=== PATIENT | female | born 1960 | race Caucasian/White ===

== ENCOUNTER 2017-08-22 10:42 | Emergency (ER) | payer BC, MEDICARE ==
--- NOTE | 2017-08-22 11:45 | RAD ---
INDICATION: Headaches COMPARISON: None TECHNIQUE: Noncontrast axial source images were acquired from the skull base to the vertex. FINDINGS: Ventricles/sulci: The ventricles and cisterns are normal in size and configuration for age. Brain parenchyma: There is no focal parenchymal finding, evidence of intracranial mass, or intracranial mass effect. Intracranial hemorrhage:None. Extra-axial spaces: There are no abnormal extra axial fluid collections or evidence of extra-axial mass. Calvarium: There is no calvarial fracture or other calvarial abnormality. Scalp: There is no evidence of scalp or extracalvarial soft tissue abnormality. Paranasal sinuses/mastoid: The paranasal sinuses and mastoid air cells are clear. Other: None. IMPRESSION: NEGATIVE EXAMINATION
[2017-08-22] MEDS ORDERED: Ondansetron INJ* 2 MG/ML VIAL IV ONE ×2 (12:37→14:57)
[2017-08-22] MEDS ORDERED: Morphine INJ* 4 MG/ML 1 ML CARPUJECT IV ONE ×2 (12:37→13:55)
[2017-08-22] MEDS ORDERED: NS 0.9% 1000 ML* 1,000 ML IV ONE (12:37)
[2017-08-22 13:08] LABS: Hematocrit 44 % (35-47); Hemoglobin 15.1 g/dl (12.0-16.0); Mean Corpuscular HGB Conc 35 g/dl (31-36); Mean Corpuscular Hemoglobin 30 pg (27-31); Mean Corpuscular Volume 87 fL (80-97); Mean Platelet Volume 8 um3 (7.4-10.4); Red Blood Count 5.01 10^6/ul (4.0-5.4); Red Cell Distribution Width 13 % (10.5-15); White Blood Count 8.2 10^3/ul (3.5-10.8)
[2017-08-22] MEDS ORDERED: Lidocaine 1% INJ* 10 MG/ML 30 ML SDV ONE (13:10)
[2017-08-22 13:23] LABS: Urine Bilirubin Negative (Negative); Urine Glucose Negative (Negative); Urine Nitrite Negative (Negative)
[2017-08-22 13:30] LABS: Albumin 4.1 g/dL (3.2-5.2); BUN/Creatinine Ratio 20.2 (8-20); Calcium 9.4 mg/dL (8.6-10.3); EGFR African American 89.6 (>60); EGFR Non-African American 69.6 (>60); Globulin 2.5 g/dL (2-4); Potassium 3.6 mmol/L (3.5-5.0); Total Bilirubin 0.5 mg/dL (0.2-1.0); Total Protein 6.6 g/dL (6.4-8.9)
[2017-08-22 13:34] LABS: Benzodiazepine Urine Screen None Detected (None Detect)
[2017-08-22 13:51] LABS: Erythrocyte Sed Rate 12 mm/Hr (0-30)
[2017-08-22 14:22] LABS: Body Fluid Appearance Clear
[2017-08-22 14:23] LABS: BF RBC Count #1 0; BF RBC Count #2 0; BF WBC Count #1 2; BF WBC Count #2 2; Body Fluid WBC 2 /mcL; RBC counts within 6%? Yes; WBC counts within 15%? Yes
[2017-08-22 14:31] LABS: CSF Glucose 61 mg/dL (40-70)
[2017-08-22 14:42] LABS: Body Fluid Total Cells Counted 32
[2017-08-22] MEDS ORDERED: Ketorolac INJ* 30 MG/ML 1 ML VIAL IV PUSH ONE (14:52)
--- NOTE | 2017-08-22 14:53 | RAD ---
INDICATION: Cough and congestion x6 weeks COMPARISON: None TECHNIQUE: PA and lateral views of the chest were obtained. FINDINGS: The heart and mediastinum are normal in size and contour. The lungs are grossly clear. There is no evidence of large pleural effusion. Visualized bones are normal for the patient's age. An intrathecal neurostimulator is incidentally noted in position at the lower to mid level thoracic spine. There is no radiographic evidence of free air beneath the diaphragm IMPRESSION: No radiographic evidence of acute cardiopulmonary disease.
[2017-08-22] MEDS ORDERED: diPHENhydraMINE IV* 50 MG/ML 1 ml VIAL (BENADRYL) IV ONE (14:56)
[2017-08-22 16:14] VITALS: BP 133/76
--- NOTE | 2017-08-23 02:19 | ED ---
Laury Dorantes Edward, scribed for Crissy Fowler MD on 08/22/17 at 1211 . Headache - HPI Summary HPI Summary: 56 y/o female presents to the ED from [facility] c/o sudden onset DOHERTY after given a duoneb at [facility] earlier today. The DOHERTY is a dull DOHERTY located on the frontal region of the R side of the head, radiating to the back of the head , to the R eye and R cheek. It was rated a 10/10 rated the worst DOHERTY of her life initially. The pain is at a 6/10 currently. The pain is aggravated with bright lights. Associated sx: cough, chills, sinus congestion for 6 weeks, R eye wandering that predates the DOHERTY, chronic back and joint pain, chronic R side neck pain. BP 186/94 on admission. Pt has been taking Nyquil, Dayquil and Zyrtec for her congestion, which has not alleviated her cold-like symptoms. PMHx HTN, migraines, tunnel vision, GERD, arthritis. Sx hip replacement, R eye surgery 1 year ago. Past medications reviewed on visit - metropolol, topiramatc , dexilant, eszopiclone, Vit B12, C, D3, Align. FHx adopted. Pt's states the pt's family has been under lots of stress recently. - History Of Current Complaint Chief Complaint: EDHeadache Stated Complaint: SOB/HEADACHE Time Seen by Provider: 08/22/17 11:38 Hx Obtained From: Patient Onset/Duration: Sudden Onset, Started hours ago, Still Present Initially Headache Was: "Worst Headache Ever" Currently Pain Is: Moderate - 6/10 Character: Dull Location of Headache: Frontal - R side Radiates to: Back of head, R eye and R cheek Aggravating Factor: Bright Lights Allevating Factors: Nothing Associated Signs And Symptoms: Other (Noted In Comments) - sinus congestion (6 weeks), chills - Allergies/Home Medications Allergies/Adverse Reactions: Allergies Allergy/AdvReac Type Severity Reaction Status Date / Time CI Pigment Blue 63 Allergy Rash Verified 12/23/15 11:36 [From Cymbalta] Codeine Allergy Nausea Verified 12/23/15 11:36 Duloxetine [From Cymbalta] Allergy Rash Verified 12/23/15 11:36 PMH/Surg Hx/FS Hx/Imm Hx Previously Healthy: No Endocrine/Hematology History: Reports: Hx Anemia - hx of years ago Denies: Hx Diabetes Cardiovascular History: Reports: Hx Hypertension - ON MEDS GI History: Reports: Hx Gastroesophageal Reflux Disease - ON MEDS, Hx Ulcer - HX OF History: Denies: Hx Renal Disease Musculoskeletal History: Reports: Hx Arthritis, Hx Bursitis - BILAT KNEES AND HIPS Sensory History: Reports: Hx Contacts or Glasses - READING Denies: Hx Hearing Aid Opthamlomology History: Reports: Hx Contacts or Glasses - READING Neurological History: Reports: Hx Migraine, Other Neuro Impairments/Disorders - NEURO STIMULATOR TO BACK Psychiatric History: Reports: Hx Anxiety, Hx Depression - Cancer History Hx Chemotherapy: No Hx Radiation Therapy: No - Surgical History Surgery Procedure, Year, and Place: tubal ligation. corrective eye surgery x2 [facility]. breast cystectomy. neurostimulator implant in back 2011 [facility]. varicose veins R leg surgery. left thr 2012 [facility]. [facility] arthroplasty left thumb 2014 [facility] [place] Hx Anesthesia Reactions: No Infectious Disease History: No Infectious Disease History: Denies: Traveled Outside the [place] in Last 30 Days - Family History Known Family History: Positive: Other - Negative for breast cancer - Social History Alcohol Use: Occasionally Hx Substance Use: No Substance Use Type: Reports: None Hx Tobacco Use: No Smoking Status (MU): Never Smoked Tobacco Review of Systems Positive: Chills Eyes: Other - R eye wandering ENT: Other - sinus congestion Cardiovascular: Negative Positive: Cough Gastrointestinal: Negative Genitourinary: Negative Positive: Arthralgia - back, joint and neck pain (chronic) Skin: Negative Positive: Headache Psychological: Normal All Other Systems Reviewed And Are Negative: Yes Physical Exam - Summary Physical Exam Summary: Appearance: Tearful with pain, holds R side of his face. Well-nourished Skin: Warm, color reflects adequate perfusion Head: Normal Head/Face Eyes: Conjunctiva clear. Pupils 2 mm equally round and reactive. R eye deviated more to the R but EOM intact. Fundi discs sharp and flat, no hemorrhage. ENT: Normal Neck: Supple, no lymphadenopathy. Chin to neck intact. Respiratory: Lungs clear, Normal breath sounds, no respiratory distress Cardio: RRR, No murmur, pulses normal, brisk capillary refill Abdomen: soft, nontender Bowel sounds: present Musculoskeletal: Strength Intact/ ROM intact Neuro: Alert, muscle tone normal, facial symmetry, speech normal, sensory/motor intact Psychological: Normal Triage Information Reviewed: Yes Vital Signs On Initial Exam: Initial Vitals Temp Pulse Resp BP Pulse Ox 100 F 95 28 162/98 98 08/22/17 10:47 08/22/17 10:47 08/22/17 10:47 08/22/17 10:47 08/22/17 10:47 Vital Signs Reviewed: Yes - Abran Coma Scale Coma Scale Total: 15 Diagnostics - Vital Signs Vital Signs Temp Pulse Resp BP Pulse Ox 08/22/17 11:00 88 15 98 08/22/17 10:52 97 19 98 08/22/17 10:47 100 F 95 28 162/98 98 - Laboratory Lab Results: Lab Results 08/22/17 08/22/17 08/22/17 Range/Units 12:55 12:55 12:55 WBC 8.2 (3.5-10.8) 10^3/ul RBC 5.01 (4.0-5.4) 10^6/ul Hgb 15.1 (12.0-16.0) g/dl Hct 44 (35-47) % MCV 87 (80-97) fL MCH 30 (27-31) pg MCHC 35 (31-36) g/dl RDW 13 (10.5-15) % Plt Count 229 (150-450) 10^3/ul MPV 8 (7.4-10.4) um3 Neut % (Auto) 77.0 (38-83) % Lymph % (Auto) 17.4 L (25-47) % Bowie % (Auto) 4.8 (1-9) % Eos % (Auto) 0.4 (0-6) % Baso % (Auto) 0.4 (0-2) % Absolute Neuts (auto) 6.3 (1.5-7.7) 10^3/ul Absolute Lymphs (auto) 1.4 (1.0-4.8) 10^3/ul Absolute Monos (auto) 0.4 (0-0.8) 10^3/ul Absolute Eos (auto) 0 (0-0.6) 10^3/ul Absolute Basos (auto) 0 (0-0.2) 10^3/ul Absolute Nucleated RBC 0.01 10^3/ul Nucleated RBC % 0.1 ESR 12 (0-30) mm/Hr INR (Anticoag Therapy) 0.83 L (0.89-1.11) APTT 29.6 (26.0-36.3) seconds Sodium 139 (133-145) mmol/L Potassium 3.6 (3.5-5.0) mmol/L Chloride 109 (101-111) mmol/L Carbon Dioxide 23 (22-32) mmol/L Anion Gap 7 (2-11) mmol/L BUN 17 (6-24) mg/dL Creatinine 0.84 (0.51-0.95) mg/dL Est GFR ( Amer) 89.6 (>60) Est GFR (Non-Af Amer) 69.6 (>60) BUN/Creatinine Ratio 20.2 H (8-20) Glucose 117 H (70-100) mg/dL Lactic Acid (0.5-2.0) mmol/L Calcium 9.4 (8.6-10.3) mg/dL Total Bilirubin 0.50 (0.2-1.0) mg/dL AST 31 (13-39) U/L ALT 44 (7-52) U/L Alkaline Phosphatase 50 (34-104) U/L C-Reactive Protein (< 5.00) mg/L Total Protein 6.6 (6.4-8.9) g/dL Albumin 4.1 (3.2-5.2) g/dL Globulin 2.5 (2-4) g/dL Albumin/Globulin Ratio 1.6 (1-3) Urine Color Urine Appearance Urine pH (5-9) Ur Specific [place] (1.010-1.030) Urine Protein (Negative) Urine Ketones (Negative) Urine Blood (Negative) Urine Nitrate (Negative) Urine Bilirubin (Negative) Urine Urobilinogen (Negative) Ur Leukocyte Esterase (Negative) Urine Glucose (Negative) Fluid Source Fluid Volume mL Fluid Color Fluid Appearance Fluid WBC /mcL Fluid RBC /mcL Fluid Tot Cell Count Fluid Neutrophils Fluid Lymphocytes % Fluid Monocytes % Fluid Cell Count Rvw By CSF Cell Count Tube # CSF Glucose (40-70) mg/dL CSF Total Protein (15-45) mg/dL Urine Opiates Screen (None Detect) Ur Barbiturates Screen (None Detect) Ur Phencyclidine Scrn (None Detect) Ur Amphetamines Screen (None Detect) U Benzodiazepines Scrn (None Detect) Urine Cocaine Screen (None Detect) U Cannabinoids Screen (None Detect) Influenza A (Rapid) (Negative) Influenza B (Rapid) (Negative) 08/22/17 08/22/17 08/22/17 Range/Units 12:55 13:03 13:03 WBC (3.5-10.8) 10^3/ul RBC (4.0-5.4) 10^6/ul Hgb (12.0-16.0) g/dl Hct (35-47) % MCV (80-97) fL MCH (27-31) pg MCHC (31-36) g/dl RDW (10.5-15) % Plt Count (150-450) 10^3/ul MPV (7.4-10.4) um3 Neut % (Auto) (38-83) % Lymph % (Auto) (25-47) % Bowie % (Auto) (1-9) % Eos % (Auto) (0-6) % Baso % (Auto) (0-2) % Absolute Neuts (auto) (1.5-7.7) 10^3/ul Absolute Lymphs (auto) (1.0-4.8) 10^3/ul Absolute Monos (auto) (0-0.8) 10^3/ul Absolute Eos (auto) (0-0.6) 10^3/ul Absolute Basos (auto) (0-0.2) 10^3/ul Absolute Nucleated RBC 10^3/ul Nucleated RBC % ESR (0-30) mm/Hr INR (Anticoag Therapy) (0.89-1.11) APTT (26.0-36.3) seconds Sodium (133-145) mmol/L Potassium (3.5-5.0) mmol/L Chloride (101-111) mmol/L Carbon Dioxide (22-32) mmol/L Anion Gap (2-11) mmol/L BUN (6-24) mg/dL Creatinine (0.51-0.95) mg/dL Est GFR ( Amer) (>60) Est GFR (Non-Af Amer) (>60) BUN/Creatinine Ratio (8-20) Glucose (70-100) mg/dL Lactic Acid 1.8 (0.5-2.0) mmol/L Calcium (8.6-10.3) mg/dL Total Bilirubin (0.2-1.0) mg/dL AST (13-39) U/L ALT (7-52) U/L Alkaline Phosphatase (34-104) U/L C-Reactive Protein (< 5.00) mg/L Total Protein (6.4-8.9) g/dL Albumin (3.2-5.2) g/dL Globulin (2-4) g/dL Albumin/Globulin Ratio (1-3) Urine Color Straw Urine Appearance Clear Urine pH 8.0 (5-9) Ur Specific [place] 1.008 L (1.010-1.030) Urine Protein Negative (Negative) Urine Ketones Negative (Negative) Urine Blood Negative (Negative) Urine Nitrate Negative (Negative) Urine Bilirubin Negative (Negative) Urine Urobilinogen Negative (Negative) Ur Leukocyte Esterase Negative (Negative) Urine Glucose Negative (Negative) Fluid Source Fluid Volume mL Fluid Color Fluid Appearance Fluid WBC /mcL Fluid RBC /mcL Fluid Tot Cell Count Fluid Neutrophils Fluid Lymphocytes % Fluid Monocytes % Fluid Cell Count Rvw By CSF Cell Count Tube # CSF Glucose (40-70) mg/dL CSF Total Protein (15-45) mg/dL Urine Opiates Screen None detected (None Detect) Ur Barbiturates Screen None detected (None Detect) Ur Phencyclidine Scrn None detected (None Detect) Ur Amphetamines Screen None detected (None Detect) U Benzodiazepines Scrn None detected (None Detect) Urine Cocaine Screen None detected (None Detect) U Cannabinoids Screen None detected (None Detect) Influenza A (Rapid) (Negative) Influenza B (Rapid) (Negative) 08/22/17 08/22/17 08/22/17 Range/Units 13:30 13:30 13:53 WBC (3.5-10.8) 10^3/ul RBC (4.0-5.4) 10^6/ul Hgb (12.0-16.0) g/dl Hct (35-47) % MCV (80-97) fL MCH (27-31) pg MCHC (31-36) g/dl RDW (10.5-15) % Plt Count (150-450) 10^3/ul MPV (7.4-10.4) um3 Neut % (Auto) (38-83) % Lymph % (Auto) (25-47) % Bowie % (Auto) (1-9) % Eos % (Auto) (0-6) % Baso % (Auto) (0-2) % Absolute Neuts (auto) (1.5-7.7) 10^3/ul Absolute Lymphs (auto) (1.0-4.8) 10^3/ul Absolute Monos (auto) (0-0.8) 10^3/ul Absolute Eos (auto) (0-0.6) 10^3/ul Absolute Basos (auto) (0-0.2) 10^3/ul Absolute Nucleated RBC 10^3/ul Nucleated RBC % ESR (0-30) mm/Hr INR (Anticoag Therapy) (0.89-1.11) APTT (26.0-36.3) seconds Sodium (133-145) mmol/L Potassium (3.5-5.0) mmol/L Chloride (101-111) mmol/L Carbon Dioxide (22-32) mmol/L Anion Gap (2-11) mmol/L BUN (6-24) mg/dL Creatinine (0.51-0.95) mg/dL Est GFR ( Amer) (>60) Est GFR (Non-Af Amer) (>60) BUN/Creatinine Ratio (8-20) Glucose (70-100) mg/dL Lactic Acid (0.5-2.0) mmol/L Calcium (8.6-10.3) mg/dL Total Bilirubin (0.2-1.0) mg/dL AST (13-39) U/L ALT (7-52) U/L Alkaline Phosphatase (34-104) U/L C-Reactive Protein 3.44 (< 5.00) mg/L Total Protein (6.4-8.9) g/dL Albumin (3.2-5.2) g/dL Globulin (2-4) g/dL Albumin/Globulin Ratio (1-3) Urine Color Urine Appearance Urine pH (5-9) Ur Specific [place] (1.010-1.030) Urine Protein (Negative) Urine Ketones (Negative) Urine Blood (Negative) Urine Nitrate (Negative) Urine Bilirubin (Negative) Urine Urobilinogen (Negative) Ur Leukocyte Esterase (Negative) Urine Glucose (Negative) Fluid Source Cerebral spinal Fluid Volume 5 mL Fluid Color Colorless Fluid Appearance Clear Fluid WBC 2 /mcL Fluid RBC 0 /mcL Fluid Tot Cell Count 32 Fluid Neutrophils Not Reportable Fluid Lymphocytes 25 % Fluid Monocytes 75 % Fluid Cell Count Rvw By Pending CSF Cell Count Tube # 4 CSF Glucose 61 (40-70) mg/dL CSF Total Protein 44 (15-45) mg/dL Urine Opiates Screen (None Detect) Ur Barbiturates Screen (None Detect) Ur Phencyclidine Scrn (None Detect) Ur Amphetamines Screen (None Detect) U Benzodiazepines Scrn (None Detect) Urine Cocaine Screen (None Detect) U Cannabinoids Screen (None Detect) Influenza A (Rapid) (Negative) Influenza B (Rapid) (Negative) 08/22/17 Range/Units 14:22 WBC (3.5-10.8) 10^3/ul RBC (4.0-5.4) 10^6/ul Hgb (12.0-16.0) g/dl Hct (35-47) % MCV (80-97) fL MCH (27-31) pg MCHC (31-36) g/dl RDW (10.5-15) % Plt Count (150-450) 10^3/ul MPV (7.4-10.4) um3 Neut % (Auto) (38-83) % Lymph % (Auto) (25-47) % Bowie % (Auto) (1-9) % Eos % (Auto) (0-6) % Baso % (Auto) (0-2) % Absolute Neuts (auto) (1.5-7.7) 10^3/ul Absolute Lymphs (auto) (1.0-4.8) 10^3/ul Absolute Monos (auto) (0-0.8) 10^3/ul Absolute Eos (auto) (0-0.6) 10^3/ul Absolute Basos (auto) (0-0.2) 10^3/ul Absolute Nucleated RBC 10^3/ul Nucleated RBC % ESR (0-30) mm/Hr INR (Anticoag Therapy) (0.89-1.11) APTT (26.0-36.3) seconds Sodium (133-145) mmol/L Potassium (3.5-5.0) mmol/L Chloride (101-111) mmol/L Carbon Dioxide (22-32) mmol/L Anion Gap (2-11) mmol/L BUN (6-24) mg/dL Creatinine (0.51-0.95) mg/dL Est GFR ( Amer) (>60) Est GFR (Non-Af Amer) (>60) BUN/Creatinine Ratio (8-20) Glucose (70-100) mg/dL Lactic Acid (0.5-2.0) mmol/L Calcium (8.6-10.3) mg/dL Total Bilirubin (0.2-1.0) mg/dL AST (13-39) U/L ALT (7-52) U/L Alkaline Phosphatase (34-104) U/L C-Reactive Protein (< 5.00) mg/L Total Protein (6.4-8.9) g/dL Albumin (3.2-5.2) g/dL Globulin (2-4) g/dL Albumin/Globulin Ratio (1-3) Urine Color Urine Appearance Urine pH (5-9) Ur Specific [place] (1.010-1.030) Urine Protein (Negative) Urine Ketones (Negative) Urine Blood (Negative) Urine Nitrate (Negative) Urine Bilirubin (Negative) Urine Urobilinogen (Negative) Ur Leukocyte Esterase (Negative) Urine Glucose (Negative) Fluid Source Fluid Volume mL Fluid Color Fluid Appearance Fluid WBC /mcL Fluid RBC /mcL Fluid Tot Cell Count Fluid Neutrophils Fluid Lymphocytes % Fluid Monocytes % Fluid Cell Count Rvw By CSF Cell Count Tube # CSF Glucose (40-70) mg/dL CSF Total Protein (15-45) mg/dL Urine Opiates Screen (None Detect) Ur Barbiturates Screen (None Detect) Ur Phencyclidine Scrn (None Detect) Ur Amphetamines Screen (None Detect) U Benzodiazepines Scrn (None Detect) Urine Cocaine Screen (None Detect) U Cannabinoids Screen (None Detect) Influenza A (Rapid) Negative (Negative) Influenza B (Rapid) Negative (Negative) Result Diagrams: 08/22/17 12:55 08/22/17 12:55 Lab Statement: Any lab studies that have been ordered have been reviewed, and results considered in the medical decision making process. - Radiology CXR Xray Interpretation: No Acute Changes - No radiographic evidence of acute cardiopulmonary disease. Radiology Interpretation Completed By: Radiologist - CT BRAIN CT CT Interpretation: No Acute Changes - NEGATIVE EXAMINATION CT Interpretation Completed By: Radiologist Re-Evaluation - Re-Evaluation 1 Re-Evaluation Time: 13:50 Change: Improved Comment: Obtained spinal tap. DOHERTY still at a 6 2 Re-Evaluation Time: 14:52 Change: Improved Comment: Discuss plan of care. Advised of CSF results. Pt will be d/c with migraine treatment. Pt is agreeable. Pt asks what else we should do for her sinus congestion. Pt's DOHERTY is at a 3/10. 3 Re-Evaluation Time: 15:05 Comment: Notify pt about rest of results Headache Course/Dx - Course Assessment/Plan: 56 y/o female presents to the ED from [facility] c/ o sudden onset DOHERTY after given a duoneb at [facility] earlier today. The DOHERTY is a dull DOHERTY located on the frontal region of the R side of the head, radiating to the back of the head, to the R eye and R cheek. It was rated a 10/10 rated the worst DOHERTY of her life initially. The pain is at a 6/10 currently. The pain is aggravated with bright lights. Associated sx: cough, chills, sinus congestion for 6 weeks, R eye wandering, chronic back and joint pain, chronic R side neck pain. BP 186/94. Pt has been taking Nyquil, Dayquil and Zyrtec for her congestion, which has not alleviated her cold-like symptoms. PMHx HTN, migraines , tunnel vision, GERD, arthritis. Sx hip replacement, R eye surgery. Past medications reviewed on visit - metropolol, topiramatc, dexilant, eszopiclone, Vit B12, C, D3, Align. FHx adopted. Pt's states the pt's family has been under lots of stress recently. BRAIN CT SHOWS NEGATIVE EXAMINATION. Spoke with Dr. Pretty who recommends immediate spinal tap. Spinal tap performed by Dr. Olson (anesthesiologist). Spoke with Dr. Simpson (eye doctor), who believes the R eye wander is not related to the DOHERTY but related to continued R eye muscle weakness. Adding CXR and Flu A and B swabs to evaluate sinus congestion for past 6 weeks. CXR SHOWS No radiographic evidence of acute cardiopulmonary disease. Flu A and B negative. Discussed with Dr. Bonno at 14:26 who recommend we treat her with Toradol, Benadryl and an anti-emetic. - Diagnoses Provider Diagnoses: Headache, Migraine - Physician Notifications Discussed Care Of Patient With: Evelina Pretty Time Discussed With Above Provider: 12:35 Instructed by Provider To: Other - Immediately perform spinal tap Discharge - Discharge Plan Condition: Stable Disposition: HOME Prescriptions: Amoxicillin/Clavulanate TAB* [Augmentin TAB 875*] 875 mg PO BID #20 tab Fluticasone NASAL SPRAY 50MCG* [Flonase NASAL SPRAY 50MCG*] 2 spray BOTH NARES DAILY #1 btl Patient Education Materials: Sinusitis (ED), Migraine Headache (ED), Lumbar Puncture (ED) Referrals: Ludivina Issa MD [Primary Care Provider] - 2 Days (PLEASE F/U IN 2 DAYS) Additional Instructions: YOU HAD A SPINAL TAP PERFORMED TODAY. THE RESULTS DID NOT SHOW A SUBARACHNOID BLEED OR MENINGITIS. SOME RESULTS ARE STILL PENDING. WE WILL NOTIFY YOU WITH THESE RESULTS. YOU WERE GIVEN MORPHINE, TORADOL, BENADRYL, ZOFRAN, AND 1 LITER OF FLUID TODAY IN THE ED BOTH YOUR BRAIN CT AND CHEST XRAY WERE NEGATIVE. YOUR FLU SWAB WAS ALSO NEGATIVE. WE WILL TREAT YOUR SINUSITIS WITH AUGMENTIN. RETURN TO THE ER FOR RETURN OR WORSENING SYMPTOMS. The documentation as recorded by the Laury salvador Edward accurately reflects the service I personally performed and the decisions made by , Crissy Fowler MD.
== END 2017-08-22 16:13 | disposition home or self-care (01) ==
LOC: ED 10:42
DX: R51 Headache (principal)
CPT/HCPCS: 36415; 70450; 71020; 80053; 80307; 81003; 82945; 83605; 84157; 85025; 85610; 85652; 85730; 86140; 86592; 87040; 87070; 87205; 87502; 89051; 99283; J1200; J1885; J2001; J2270; J2405

== ENCOUNTER 2024-07-02 05:39 | Observation (INO) ==
[~2024-07-02 05:39] MED LIST: Metoclopramide 5 MG/ML VIAL (10 mg) IV PRN; Naloxone 0.4 mg VIAL 0.4 mg/ml 1 ml VIAL IV PRN; Ondansetron 4 mg VIAL 2 MG/ML 2 ml VIAL IV PRN; fentaNYL 100 mcg/2 ml 50 MCG/ML VIAL IV PRN
[2024-07-02] MEDS ORDERED: Midazolam 2 mg/2 ml VIAL 1 mg/ml 2 ml VIAL (2 mg) ONE (06:34)
[2024-07-02] MEDS ORDERED: Lidocaine 2% PF 5 ML VIAL ONE (06:34)
[2024-07-02] MEDS ORDERED: Dexamethasone IV 4 MG/ML VIAL 1 ml VIAL ONE (06:34)
[2024-07-02] MEDS ORDERED: Propofol 10 MG/ML 20 ML BTL ONE (06:34)
[2024-07-02] MEDS ORDERED: fentaNYL 100 mcg/2 ml 50 MCG/ML VIAL ONE (06:34)
[2024-07-02] MEDS ORDERED: Rocuronium 50 mg VIAL 10 mg/ml 5 ml VIAL (50 mg) ONE (06:34)
[2024-07-02] MEDS ORDERED: Ondansetron 4 mg VIAL 2 MG/ML 2 ml VIAL ONE (06:34)
[2024-07-02] MEDS ORDERED: Lidocaine 1% w EPI 1:100,000 MDV 20 ML VIAL ONE (06:46)
[2024-07-02] MEDS ORDERED: Thrombin 5,000 UNITS 1 APPLIC KIT - topical use - TOPICAL ONE (06:47)
[2024-07-02] MEDS ORDERED: ceFAZolin VIAL VIAL ONE (06:47)
[2024-07-02] MEDS ORDERED: ceFAZolin 2 GM PREMIX 2 GM/50 ML BAG ONE (06:58)
[2024-07-02] MEDS ORDERED: Chlorhexidine MOUTHWASH 0.12% 15 ML UDC ONE (06:58)
[2024-07-02 07:55] LABS: Rapid COVID-19 Molecular Undetected (Undetected)
[2024-07-02] MEDS ORDERED: Dextran 70/Hypromellose Tears Eye Drops 15 ml BTL (for Artificials Tears) BOTH EYES PRN (09:05)
[2024-07-02] MEDS ORDERED: Morphine 2 MG/ML SYRINGE IV PRN (09:05)
[2024-07-02] MEDS ORDERED: Senna TAB 8.6 mg TAB PO PRN (09:05)
[2024-07-02] MEDS ORDERED: HYDROcodone/ACETAMIN 5/325 mg TAB PO PRN (09:05)
[2024-07-02] MEDS ORDERED: Phenol 1.4% Throat Spray BTL MT PRN (09:05)
[2024-07-02] MEDS ORDERED: Calcium Carb (TUMS) 500 mg CHEW TAB PO PRN (09:05)
[2024-07-02] MEDS: Buffered Lidocaine 1% SYRIN 1 ml INTRADERM ONE (11:00)
[2024-07-02] MEDS: Scopolamine 1 mg/72hr PATCH TRANSDERM ONE (11:01)
[2024-07-02] MEDS: Lactated Ringers 1000 ml BAG 1,000 ML IV SCH ×2 (11:01)
[2024-07-02] MEDS: HYDROcodone/ACETAMIN 5/325 mg TAB PO PRN (11:28)
[2024-07-02] MEDS: Benzocaine/Menthol LOZ MT PRN (16:43)
[2024-07-03 06:08] VITALS: BP 113/65
[2024-07-03] MEDS: Ondansetron 4 mg VIAL 2 MG/ML 2 ml VIAL IV PRN (06:28)
[2024-07-03] MEDS: BIFIDOBACTERIUM INFANTIS 4 MG PO SCH (08:17)
== END 2024-07-03 09:52 | disposition home or self-care (01) ==
LOC: SSU 05:39 → OR 05:39
PROVIDERS: ADMIT Neurological Surgery; ATTEND Neurological Surgery

== ENCOUNTER 2024-11-27 06:23 | Observation (INO) ==
[~2024-11-27 06:23] MED LIST changes: -Metoclopramide 5 MG/ML VIAL (10 mg) IV PRN; +NS 0.45% 1000 ml BAG 1,000 ML IV SCH; -Ondansetron 4 mg VIAL 2 MG/ML 2 ml VIAL IV PRN; -fentaNYL 100 mcg/2 ml 50 MCG/ML VIAL IV PRN
[2024-11-27 07:00] LABS: Rapid COVID-19 Molecular Undetected (Undetected)
[2024-11-27] MEDS ORDERED: ceFAZolin 2 GM PREMIX 2 GM/50 ML BAG ONE (07:11)
[2024-11-27] MEDS ORDERED: Tranexamic Acid 1 GM/100ML BAG 2,000 MG/200 ML BAG IV ONE (07:11)
[2024-11-27] MEDS: Buffered Lidocaine 1% SYRIN 1 ml INTRADERM ONE (07:45)
[2024-11-27] MEDS ORDERED: Propofol 10 MG/ML 20 ML BTL ONE (09:01)
[2024-11-27] MEDS ORDERED: Dexamethasone IV 4 MG/ML VIAL 1 ml VIAL ONE (09:01)
[2024-11-27] MEDS ORDERED: Lidocaine 2% PF 5 ML VIAL ONE (09:01)
[2024-11-27] MEDS ORDERED: Ondansetron 4 mg VIAL 2 MG/ML 2 ml VIAL ONE ×2 (09:01→12:49)
[2024-11-27] MEDS ORDERED: Rocuronium 50 mg VIAL 10 mg/ml 5 ml VIAL (50 mg) ONE (09:01)
[2024-11-27] MEDS ORDERED: Midazolam 2 mg/2 ml VIAL 1 mg/ml 2 ml VIAL (2 mg) ONE (09:02)
[2024-11-27] MEDS ORDERED: fentaNYL 250 mcg/5 ml 50 MCG/ML 5 ml VIAL (250 MCG) ONE (09:02)
[2024-11-27] MEDS ORDERED: ROPIVACAINE 5 MG/ML 30 ML BTL (0.5%) ONE (09:07)
[2024-11-27] MEDS ORDERED: Magnesium Hydroxide LIQ 30 ML UDC PO PRN (10:20)
[2024-11-27] MEDS ORDERED: Ondansetron ODT 4 mg TAB 4 MG TAB PO PRN (10:20)
[2024-11-27] MEDS ORDERED: Morphine 2 MG/ML SYRINGE IV PRN (10:20)
[2024-11-27] MEDS ORDERED: Ondansetron 4 mg VIAL 2 MG/ML 2 ml VIAL IV PRN (10:20)
[2024-11-27] MEDS ORDERED: Lactulose 30 ml UDC PO PRN (10:20)
[2024-11-27] MEDS ORDERED: Calcium Carb (TUMS) 500 mg CHEW TAB PO PRN (10:20)
[2024-11-27] MEDS ORDERED: HYDROmorphone 0.5 MG/0.5 ML SYRINGE ONE ×2 (11:28→11:36)
[2024-11-27] MEDS ORDERED: fentaNYL 100 mcg/2 ml 50 MCG/ML VIAL ONE (12:21)
[2024-11-27] MEDS: fentaNYL 100 mcg/2 ml 50 MCG/ML VIAL IV PRN (12:24)
[2024-11-27] MEDS: Ondansetron 4 mg VIAL 2 MG/ML 2 ml VIAL IV PRN (12:51)
[2024-11-27] MEDS ORDERED: Scopolamine 1 mg/72hr PATCH TRANSDERM PRN (14:02)
[2024-11-27] MEDS: Scopolamine 1 mg/72hr PATCH TRANSDERM SCH (15:49)
[2024-11-27] MEDS: Prochlorperazine 5 mg/ml 2 ml VIAL (10 mg) IV PRN (15:50)
[2024-11-27] MEDS: Lactated Ringers 1000 ml BAG 1,000 ML IV SCH ×2 (15:51→17:57)
[2024-11-27] MEDS: Acetaminophen IV 1 GM/100ML 1,000 MG/100 ML BAG IV ONE (17:57)
[2024-11-27] MEDS: ceFAZolin 2 GM PREMIX 2 GM/50 ML BAG IV SCH (18:10)
[2024-11-27] MEDS: HYDROcodone/ACETAMIN 5/325 mg TAB PO PRN (18:10)
[2024-11-27] MEDS: Magnesium Hydroxide LIQ 30 ML UDC PO SCH (21:00)
[2024-11-28 06:07] LABS: Hematocrit 35.8 % (35-45); Hemoglobin 12.6 g/dL (11.5-14.3); Platelet Count 209 10^3/uL (150-450)
[2024-11-28 06:30] LABS: Calcium 8.7 mg/dL (8.6-10.3); Creatinine, Serum 0.8 mg/dL (0.51-0.95); Potassium 3.1 mmol/L (3.5-5.0); eGFR CKD-EPI 81.7 (>60)
[2024-11-28 09:22] VITALS: BP 118/59
[2024-11-28] MEDS: HYDROcodone/ACETAMIN 5/325 mg TAB PO PRN (09:34)
[2024-11-28] MEDS: Potassium Chlor 20 meq TAB.ER PO ONE (09:36)
[2024-11-28] MEDS: Vitamin THERAPEUTIC TAB PO SCH (09:36)
== END 2024-11-28 13:27 | disposition home or self-care (01) ==
LOC: OR 06:23 → INTOOBSV 14:55 → SSU 14:55
PROVIDERS: ADMIT Orthopaedic Surgery Adult Reconstructive Orthopaedic Surgery; ATTEND Orthopaedic Surgery Adult Reconstructive Orthopaedic Surgery